=== PATIENT | male | born 1930 | race Caucasian/White ===

== ENCOUNTER 2016-07-22 15:05 | Inpatient (IN) | payer OTHER ==
[2016-07-22] VITALS (14 sets, daily range): BP systolic 0–137; BP diastolic 0–110
[~2016-07-22] VITALS: Ht 175.3 cm; Wt 100.4 kg
[2016-07-22] MEDS ORDERED: SODIUM CHLORIDE 0.9% 1,000 ML IVB ONE (15:26)
[2016-07-22 16:04] LABS: DEFINITIVE VIEW TRANSMISSION; Hematocrit 43.2 % (41.0-53.0); Hemoglobin 14.1 g/dL (13.5-17.5); Mean Corpuscular Hemoglobin 30.6 pg (28.0-32.0); Mean Corpuscular Hgb Conc. 32.5 g/dL (32.0-36.0); Mean Corpuscular Volume 94.2 fL (80.0-100.0); Mean Platelet Volume 10.6 fL (7.4-10.4); Platelet Count (auto) 129 10^3/uL (140-450); SUSPECT VIEW TRANSMISSION; White Blood Cell 29.4 10^3/uL (4.4-10.8)
[2016-07-22 16:08] LABS: Metamyelocytes % 0; Myelocytes % 0; Promyelocytes % 0; Reactive Lymphocytes 0
[2016-07-22 16:19] LABS: Lactic Acid 2.5 mmol/L (0.4-2.0)
[2016-07-22 16:20] LABS: Albumin 2.9 g/dL (3.4-5.0); Alkaline Phosphatase 134 U/L (45-117); Anion Gap 14 (5-15); Aspartate Aminotransferase 122 U/L (15-37); BUN/Creatinine Ratio 24.4; Bilirubin, Total 0.4 mg/dL (0.2-1.0); Calcium 8.9 mg/dL (8.5-10.1); Carbon Dioxide 24 mmol/L (21-32); Chloride 108 mmol/L (98-107); GFR African American 14 mL/min; GFR Non-African American 12 mL/min; Glucose 105 mg/dL (74-106); Magnesium 3.1 mg/dL (1.6-2.6); Sodium 146 mmol/L (136-145); Total Protein 7.1 g/dL (6.4-8.2)
[2016-07-22 16:21] LABS: Partial Thromboplastin Time 38.1 sec (22.64-33.71); REFLEX LACTIC ACID YES OR NO YES
[2016-07-22 16:28] LABS: Blood Urea Nitrogen 120 mg/dL (7-18); Potassium 5.6 mmol/L (3.5-5.1)
[2016-07-22] MEDS ORDERED: PIPERACILLIN-TAZOB 2.25GM 50 ML IV ONE ×2 (16:30→16:45)
[2016-07-22] MEDS ORDERED: VANCOMYCIN 1GM/250ML D5W 250 ML IV ONE (16:30)
[2016-07-22 16:31] LABS: INR 1.21 (0.9-1.15); Prothrombin Time 12.5 sec (9.37-12.3)
[2016-07-22] MEDS ORDERED: HYDROcodone-ACET 5/325MG TAB PO PRN (16:45)
[2016-07-22] MEDS ORDERED: MORPHINE SULF INJ 2 MG/ML SYRINGE 1ML IV PRN ×2 (16:45)
[2016-07-22] MEDS ORDERED: LACTULOSE 20Gm/30ML SOLN PO PRN (16:45)
[2016-07-22] MEDS ORDERED: TEMAZEPAM 15 MG CAP PO PRN (16:45)
[2016-07-22] MEDS ORDERED: LORazepam 0.5 MG TAB PO PRN (16:45)
[2016-07-22] MEDS ORDERED: ACETAMINOPHEN 500 MG TAB PO PRN (16:45)
[2016-07-22] MEDS ORDERED: NITROGLYCERIN 0.4 MG SL TAB SL PRN (16:45)
[2016-07-22] MEDS ORDERED: ONDANSETRON HCL 4 MG/2 ML VIAL IV PRN (16:45)
[2016-07-22 17:02] LABS: Amylase 128 U/L (25-115)
[2016-07-22 17:10] LABS: Temperature: 21.9 C (20.0-25.0)
[2016-07-22 17:41] LABS: BUN/Creatinine Ratio 25.2; Calcium 8.2 mg/dL (8.5-10.1); Potassium 5.1 mmol/L (3.5-5.1)
[2016-07-22] MEDS: PIPERACILLIN-TAZOB 2.25GM 50 ML IV SCH (17:58)
[2016-07-22] MEDS: SODIUM CHLORIDE 0.9% 1,000 ML IV SCH (18:04)
[2016-07-22 18:06] LABS: Platelet Estimate Decreased
[2016-07-22 18:07] LABS: Burr Cells FEW; Ovalocytes FEW
[2016-07-22] MEDS ORDERED: LEVOTHYROXINE SODIUM 100 MCG/5 ML INJ IV ONE (19:00)
[2016-07-22] MEDS ORDERED: LINEZOLID 600MG/300ML 300 ML IV SCH (19:00)
[2016-07-22] MEDS: LINEZOLID 600MG/300ML 300 ML IV SCH (21:48)
[2016-07-22] MEDS ORDERED: CLINDAMYCIN 600MG IV 50 ML IV SCH (22:00)
[2016-07-22] MEDS ORDERED: DOPamine 1600MCG/ML 250 ML IV ONE (22:04)
[2016-07-22] MEDS: DOPamine 1600MCG/ML 250 ML IV SCH (22:30)
[2016-07-23] VITALS (95 sets, daily range): BP systolic 60–130; BP diastolic 38–77
[2016-07-23] MEDS: PIPERACILLIN-TAZOB 2.25GM 50 ML IV SCH ×5 (00:33→23:44)
[2016-07-23] MEDS: DOPamine 1600MCG/ML 250 ML IV SCH ×3 (00:35→23:00)
[2016-07-23] MEDS ORDERED: SOD CHL 0.45% 1,000 ML IV ONE (00:45)
[2016-07-23 04:35] LABS: DEFINITIVE VIEW TRANSMISSION; Hematocrit 44.3 % (41.0-53.0); Hemoglobin 14.3 g/dL (13.5-17.5); Mean Corpuscular Hemoglobin 30.7 pg (28.0-32.0); Mean Corpuscular Hgb Conc. 32.2 g/dL (32.0-36.0); Mean Corpuscular Volume 95.2 fL (80.0-100.0); Mean Platelet Volume 9.5 fL (7.4-10.4); Platelet Count (auto) 102 10^3/uL (140-450); Red Cell Distribution Width 16.3 % (11.6-16.0); SUSPECT VIEW TRANSMISSION; White Blood Cell 28.9 10^3/uL (4.4-10.8)
[2016-07-23 04:53] LABS: Metamyelocytes % 0; Myelocytes % 0; Promyelocytes % 0; Reactive Lymphocytes 0
[2016-07-23 05:17] LABS: Albumin 2.6 g/dL (3.4-5.0); BUN/Creatinine Ratio 24.8; Bilirubin, Total 0.6 mg/dL (0.2-1.0); Calcium 7.8 mg/dL (8.5-10.1); Potassium 4.2 mmol/L (3.5-5.1); Total Protein 7.2 g/dL (6.4-8.2)
[2016-07-23 05:57] LABS: Urine Bilirubin Negative (Negative); Urine Color Yellow (Yellow); Urine Glucose Normal (Normal); Urine Hyaline Cast MANY /lpf (0 - 2); Urine Ketone Negative (Negative); Urine Mucus FEW (None Seen); Urine Nitrite Negative (Negative); Urine RBC 5 /hpf (0 - 3); Urine Squamous Epithelial Cell FEW /hpf (<5); Urine Urobilinogen Normal (Negative)
[2016-07-23 05:59] LABS: Urine Blood 2+ /uL (Negative)
[2016-07-23] MEDS: SODIUM CHLORIDE 0.9% 1,000 ML IV SCH ×3 (06:00→20:04)
[2016-07-23] MEDS: LEVOTHYROXINE SODIUM 25 MCG TAB PO SCH (06:32)
[2016-07-23] MEDS ORDERED: TAMS0.4C36 PO (06:51)
[2016-07-23] MEDS ORDERED: RIV15T PO (06:51)
[2016-07-23] MEDS ORDERED: ATOR20TA PO (06:51)
[2016-07-23] MEDS ORDERED: DIVA250T6 PO (06:52)
[2016-07-23] MEDS ORDERED: FURO40TA4 PO (06:52)
[2016-07-23] MEDS ORDERED: POTA20TA53 PO (06:53)
[2016-07-23] MEDS ORDERED: ZOLP10TA6 PO (06:56)
[2016-07-23] MEDS ORDERED: VALS160T53 PO (06:56)
[2016-07-23] MEDS ORDERED: DEXT20CA PO (06:56)
[2016-07-23 07:12] LABS: Anisocytosis Slight; Platelet Estimate Decreased
[2016-07-23] MEDS: LINEZOLID 600MG/300ML 300 ML IV SCH ×2 (08:44→20:04)
[2016-07-24] VITALS (91 sets, daily range): BP systolic 87–134; BP diastolic 36–68
[2016-07-24] MEDS: SODIUM CHLORIDE 0.9% 1,000 ML IV SCH ×3 (03:03→23:02)
[2016-07-24 04:03] LABS: Calcium 7.8 mg/dL (8.5-10.1); Potassium 4.5 mmol/L (3.5-5.1)
[2016-07-24 04:05] LABS: BUN/Creatinine Ratio 25.7
[2016-07-24 04:08] LABS: Bilirubin, Total 0.4 mg/dL (0.2-1.0)
[2016-07-24] MEDS: PIPERACILLIN-TAZOB 2.25GM 50 ML IV SCH ×4 (05:27→23:10)
[2016-07-24] MEDS: DOPamine 1600MCG/ML 250 ML IV SCH ×2 (07:00→16:51)
[2016-07-24] MEDS: LEVOTHYROXINE SODIUM 25 MCG TAB PO SCH (07:02)
[2016-07-24 07:15] LABS: Basophils # (auto) 0 uL; Basophils % (auto) 0.1 % (0.0-2.0); DEFINITIVE VIEW TRANSMISSION; Eosinophils # (auto) 0 uL; Eosinophils % (auto) 0.2 % (0.0-7.0); Hematocrit 39.5 % (41.0-53.0); Lymphocytes % (auto) 5.9 % (10.0-50.0); Mean Corpuscular Hemoglobin 30.8 pg (28.0-32.0); Mean Corpuscular Hgb Conc. 32.8 g/dL (32.0-36.0); Mean Corpuscular Volume 93.9 fL (80.0-100.0); Mean Platelet Volume 8.6 fL (7.4-10.4); Monocytes # (auto) 1.7 uL; Monocytes % (auto) 9.9 % (0.0-12.0); Neutrophils # (auto) 14.2 uL; Neutrophils % (auto) 83.9 % (37.0-80.0); Platelet Count (auto) 86 10^3/uL (140-450); Red Cell Distribution Width 17.5 % (11.6-16.0); SUSPECT VIEW TRANSMISSION; White Blood Cell 16.9 10^3/uL (4.4-10.8)
[2016-07-24] MEDS: LINEZOLID 600MG/300ML 300 ML IV SCH ×2 (08:16→19:49)
[2016-07-25] VITALS (75 sets, daily range): BP systolic 90–125; BP diastolic 40–73
[2016-07-25] MEDS: DOPamine 1600MCG/ML 250 ML IV SCH (04:08)
[2016-07-25] MEDS: PIPERACILLIN-TAZOB 2.25GM 50 ML IV SCH (05:17)
[2016-07-25] MEDS: LEVOTHYROXINE SODIUM 25 MCG TAB PO SCH (05:27)
[2016-07-25 06:02] LABS: Hematocrit 40.8 % (41.0-53.0); Mean Corpuscular Volume 94.3 fL (80.0-100.0); SUSPECT VIEW TRANSMISSION
[2016-07-25 06:09] LABS: DEFINITIVE VIEW TRANSMISSION; Hemoglobin 13.4 g/dL (13.5-17.5); Mean Corpuscular Hemoglobin 30.9 pg (28.0-32.0); Mean Corpuscular Hgb Conc. 32.8 g/dL (32.0-36.0); Mean Platelet Volume 8.7 fL (7.4-10.4); Platelet Count (auto) 69 10^3/uL (140-450); Red Cell Distribution Width 17.7 % (11.6-16.0); White Blood Cell 14.8 10^3/uL (4.4-10.8)
[2016-07-25 06:21] LABS: Albumin 1.7 g/dL (3.4-5.0); BUN/Creatinine Ratio 25.9; Calcium 8.2 mg/dL (8.5-10.1); Potassium 3.8 mmol/L (3.5-5.1)
[2016-07-25 06:22] LABS: Metamyelocytes % 0; Myelocytes % 0; Promyelocytes % 0; Reactive Lymphocytes 0
[2016-07-25 06:25] LABS: Bilirubin, Total 0.6 mg/dL (0.2-1.0); Total Protein 5.9 g/dL (6.4-8.2)
[2016-07-25 06:50] LABS: B-Type Natriuretic Peptide 79.5 pg/mL (0-100); Temperature: 20.2 C (20.0-25.0)
[2016-07-25 07:20] LABS: Platelet Estimate Decreased
[2016-07-25 07:21] LABS: RBC Morphology Normal
[2016-07-25] MEDS: LINEZOLID 600MG/300ML 300 ML IV SCH (07:38)
[2016-07-25] MEDS: SODIUM CHLORIDE 0.9% 1,000 ML IV SCH (13:27)
[2016-07-25] MEDS: cefTRIAXone 1GM/50ML D5W 50 ML IV SCH (13:27)
[2016-07-26] VITALS (41 sets, daily range): BP systolic 88–144; BP diastolic 37–79
[2016-07-26] MEDS: SODIUM CHLORIDE 0.9% 1,000 ML IV SCH (02:05)
[2016-07-26 03:45] LABS: Hematocrit 38.5 % (41.0-53.0); Hemoglobin 12.5 g/dL (13.5-17.5); Mean Corpuscular Hemoglobin 30.3 pg (28.0-32.0); Mean Corpuscular Hgb Conc. 32.5 g/dL (32.0-36.0); Mean Corpuscular Volume 93.3 fL (80.0-100.0); Platelet Count (auto) 80 10^3/uL (140-450); Red Cell Distribution Width 17.4 % (11.6-16.0); SUSPECT VIEW TRANSMISSION; White Blood Cell 14.2 10^3/uL (4.4-10.8)
[2016-07-26 03:55] LABS: Metamyelocytes % 0; Myelocytes % 0; Promyelocytes % 0; Reactive Lymphocytes 0
[2016-07-26 04:07] LABS: Albumin 1.7 g/dL (3.4-5.0); BUN/Creatinine Ratio 31.7; Bilirubin, Total 0.4 mg/dL (0.2-1.0); Calcium 8.7 mg/dL (8.5-10.1); Magnesium 2.4 mg/dL (1.6-2.6); Potassium 3.5 mmol/L (3.5-5.1); Total Protein 5.7 g/dL (6.4-8.2)
[2016-07-26 04:14] LABS: Platelet Estimate Decreased; RBC Morphology Normal
[2016-07-26] MEDS: LEVOTHYROXINE SODIUM 25 MCG TAB PO SCH (06:46)
[2016-07-26] MEDS: cefTRIAXone 1GM/50ML D5W 50 ML IV SCH (08:13)
[2016-07-26] MEDS: DOPamine 1600MCG/ML 250 ML IV SCH (08:14)
[2016-07-26] MEDS ORDERED: D5W/SOD CHL 0.45% 1,000 ML IV SCH (10:30)
[2016-07-26] MEDS ORDERED: MUPIROCIN 2% OINT 22GM TOP SCH (11:00)
[2016-07-26] MEDS ORDERED: MORPHINE SULF INJ 2 MG/ML SYRINGE 1ML IV PRN (15:00)
[2016-07-26] MEDS ORDERED: LORazepam 2MG/ML-1ML VIAL IV PRN (15:00)
[2016-07-26] MEDS ORDERED: ACETAMINOPHEN 650 MG RECT SUPP PR PRN (16:45)
[2016-07-27 05:52] VITALS: BP 121/57
[2016-07-27 09:00] VITALS: BP 138/62
[2016-07-27 11:53] VITALS: BP 121/57
[2016-07-27 13:00] VITALS: BP 144/58
== END 2016-07-27 14:30 | disposition hospice, home (50) | DRG 871 ==
LOC: ER 15:23 → TELE 15:24 → ICU WEST 20:10 → EAST 07-26 17:41 → WEST WING 07-26 17:54
PROVIDERS: ADMIT Internal Medicine; ATTEND Internal Medicine
DX: A41.9 Sepsis, unspecified organism (principal); N17.0 Acute kidney failure with tubular necrosis; G93.41 Metabolic encephalopathy; E87.1 Hypo-osmolality and hyponatremia; M62.82 Rhabdomyolysis; E44.0 Moderate protein-calorie malnutrition; N39.0 Urinary tract infection, site not specified; E87.0 Hyperosmolality and hypernatremia; D69.6 Thrombocytopenia, unspecified; I48.2 Chronic atrial fibrillation; N18.9 Chronic kidney disease, unspecified; I12.9 Hypertensive chronic kidney disease with stage 1 through stage 4 chronic kidney disease, or unspecified chronic kidney disease; E87.5 Hyperkalemia; Z79.899 Other long term (current) drug therapy; F02.80 Dementia in other diseases classified elsewhere, unspecified severity, without behavioral disturbance, psychotic disturbance, mood disturbance, and anxiety; G30.9 Alzheimer's disease, unspecified; Z22.322 Carrier or suspected carrier of Methicillin resistant Staphylococcus aureus; Z66 Do not resuscitate; Z68.32 Body mass index [BMI] 32.0-32.9, adult
CPT/HCPCS: 36415; 36600; 70450; 71010; 76700; 80048; 80053; 80061; 80320; 81001; 82150; 82378; 82550; 82607; 82746; 82805; 82962; 83605; 83690; 83735; 83880; 84443; 84484; 85007; 85025; 85027; 85049; 85610; 85652; 85730; 86141; 87040; 87081; 87086; 92610; 93005; 93306; 95819; 96361; 96365; 97001; G0434; J0696; J2405; J2543; J3490